=== PATIENT | male | born 1995 | race Caucasian/White ===

== ENCOUNTER 2025-06-07 18:11 | Emergency (ER) | payer MEDICAID ==
[2025-06-07] MEDS: Benzocaine 20% Topical Spray UD MUCMEM ONE (18:58)
[2025-06-07] MEDS: Lidocaine 2% Viscous Solution 15 ML UD PO ONE (18:58)
== END 2025-06-07 19:04 | disposition home or self-care (01) ==
LOC: MW.ED 18:11
DX: K08.89 Other specified disorders of teeth and supporting structures (principal); F17.200 Nicotine dependence, unspecified, uncomplicated; Z75.3 Unavailability and inaccessibility of health-care facilities
CPT/HCPCS: 99282; A9270; 99283